=== PATIENT | male | born 1970 | race Caucasian/White ===

== ENCOUNTER 2017-07-01 16:25 | Emergency (ER) | payer OTHER ==
[~2017-07-01] VITALS: Ht 167.6 cm; Wt 93.4 kg
[2017-07-01 16:43] VITALS: BP 138/74
--- NOTE | 2017-07-01 16:52 | NUR ---
PT AMBULATES TO ER BED 12. REPORT GIVEN TO MONICA CONTRERAS.
--- NOTE | 2017-07-01 17:23 | NUR ---
PATIENT PRESENTS TO ED WITH C/O DIZZINESS WEAKNESS HEADACHES GENERAL MALAISE X 3 DAYS DENIES ETOH/DRUG USE, ADDS HYPERDIPSIA, HYPERPHAGIA, AND HYPERURIA CURRENTLY HYPERGLYCEMIC---FULL CLEAR SPEECH, NO FACIAL ASYMMETRY, AMBULATORY WITH STEADY GAIT, EQUAL METAL DRESSER/PUSHES/PULLS BUE DENIES V/D; SKIN IS PINK/WARM/DRY; AAOX4 WITH EVEN AND STEADY GAIT; LUNGS CLEAR BL; HR EVEN AND REGULAR; PT DENIES ANY FEVER, CP, SOB, OR COUGH AT THIS TIME; PATIENT STATES PAIN OF 7/10 AT THIS TIME; VSS; PATIENT POSITIONED FOR COMFORT; HOB ELEVATED; BEDRAILS UP X2; BED DOWN. ER MD MADE AWARE OF PT STATUS.
[2017-07-01] MEDS ORDERED: PROMETHAZINE 25 MG/ML VIAL IM ONE (17:25)
[2017-07-01] MEDS ORDERED: ONDANSETRON 4 MG/2 ML VIAL IVP ONE (17:25)
[2017-07-01] MEDS ORDERED: MECLIZINE 25 MG TAB PO ONE (17:25)
--- NOTE | 2017-07-01 17:49 | NUR ---
BLOOD COLLECTED AT IV START
--- NOTE | 2017-07-01 17:51 | NUR ---
PT HOLDING CONVERSATION WITH AT BEDSIDE---SMILING LAUGHING AT TIMES.
[2017-07-01 17:53] LABS: BASOPHILS % (AUTO) 0.2 % (0.0-2.0); EOSINOPHILS # (AUTO) 0.1 K/uL (0-0.4); EOSINOPHILS % (AUTO) 0.7 % (0.0-4.0); HEMATOCRIT 45.2 % (36-52); HEMOGLOBIN 15.5 g/dL (12.0-18.0); LYMPHOCYTES # (AUTO) 1.5 K/uL (2.0-11.5); LYMPHOCYTES % (AUTO) 17.3 % (20.5-51.1); MEAN CORPUSCULAR HEMOGLOBIN 33 pg (27-31); MEAN CORPUSCULAR HGB CONC 34 g/dL (33-37); MEAN CORPUSCULAR VOLUME 95.7 fL (80-94); MONOCYTES # (AUTO) 0.5 K/uL (0.8-1.0); MONOCYTES % (AUTO) 6.2 % (1.7-9.3); NEUTROPHILS # (AUTO) 6.5 K/uL (1.8-7.7); NEUTROPHILS % (AUTO) 75.6 % (42.2-75.2); PLATELET COUNT (AUTO) 243 K/uL (140-450); RED BLOOD CELL COUNT(AUTO) 4.72 MIL/uL (4.20-6.10); RED CELL DISTRIBUTION WIDTH 12.6 % (11.6-13.7); WHITE BLOOD COUNT (AUTO) 8.6 K/uL (4.8-10.8)
--- NOTE | 2017-07-01 17:55 | NUR ---
TO CT VIA WC
[2017-07-01 17:56] LABS: APPEARANCE,URINE CLEAR (CLEAR); BILIRUBIN,URINE NEGATIVE (NEGATIVE); BLOOD, URINE NEGATIVE (NEGATIVE); COLOR,URINE YELLOW (YELLOW); LEUKOCYTE ESTERASE ,URINE NEGATIVE (NEGATIVE); NITRITE, URINE NEGATIVE (NEGATIVE); UGLUCOSE 3+ (NEGATIVE)
[2017-07-01 18:04] LABS: RBC,URINE 0-5 (RARE) /HPF (0-5); WBC,URINE 0-5 (RARE) /HPF (0-5)
--- NOTE | 2017-07-01 18:06 | NUR ---
RETURNED FROM CT VIA WC
[2017-07-01 18:08] LABS: ANION GAP 18.8 (8-16); CARBON DIOXIDE 23.3 mmol/L (21-32); CREATININE 0.9 mg/dL (0.7-1.3); POTASSIUM 4.1 mmol/L (3.5-5.1); TOTAL BILIRUBIN 0.7 mg/dL (0.0-1.0)
--- NOTE | 2017-07-01 18:08 | NUR ---
Family member sent home to retrieve patient's medications for medication reconciliation.
[2017-07-01 18:27] LABS: PROTHROMBIN TIME 10.4 secs (10.8-13.4)
[2017-07-01] MEDS ORDERED: LISI10TA11 PO (18:58)
[2017-07-01] MEDS ORDERED: METF500T PO (18:58)
[2017-07-01] MEDS ORDERED: INSULIN REGULAR, HUMAN 100 UNIT/ML VIAL SUBQ ONE (19:00)
--- NOTE | 2017-07-01 19:00 | NUR ---
RECEIVED REPORT FROM ELANA ANDERSON. TRANSFER OF CARE AT THIS TIME.
--- NOTE | 2017-07-01 19:45 | NUR ---
PATIENT HAD ACCUCHECK OF 362. PER NATALIE KO TO DC.
[2017-07-01 19:48] VITALS: BP 125/81
--- NOTE | 2017-07-01 19:48 | NUR ---
Patient discharged with v/s stable. Written and verbal after care instructions given and explained. Patient alert, oriented and verbalized understanding of instructions. Ambulatory with steady gait. All questions addressed prior to discharge. ID band removed. Patient advised to follow up with PMD. Rx of METFORMIN HYDROCHLORIDE 500MG AND ANTIVERT 25MG given. Patient educated on indication of medication including possible reaction and side effects. Opportunity to ask questions provided and answered.
== END 2017-07-01 19:48 | disposition home or self-care (01) ==
LOC: MED 16:25
DX: E11.65 Type 2 diabetes mellitus with hyperglycemia (principal); K21.9 Gastro-esophageal reflux disease without esophagitis; I10 Essential (primary) hypertension; R94.31 Abnormal electrocardiogram [ECG] [EKG]
CPT/HCPCS: 36415; 70450; 71045; 80053; 81001; 82948; 83036; 84484; 85025; 85610; 85730; 93005; 96372; 96374; 99285; J1815; J2405; J2550; J8597; Q0092

== ENCOUNTER 2019-09-21 18:15 | Emergency (ER) | payer OTHER ==
[~2019-09-21] VITALS: Ht 167.6 cm; Wt 83.0 kg
[~2019-09-21 18:15] MED LIST: LISI10TA11 PO; METF500T PO
[2019-09-21 18:27] VITALS: BP 129/75
[2019-09-21 18:39] VITALS: BP 129/75
--- NOTE | 2019-09-21 18:39 | NUR ---
48 Y/O M C/C HIGH BLOOD SUGAR AND BLURRY VISION X 1 DAY. PER PT HAS BEEN COMPLIANT WITH DM MEDICATION. PT DENIES POLYPHAGIA,POLYURIA,POLYDIPSIA. NVD. NKA. HX DM,HTN,HDL. RX METFORMIN,ATORVASTATIN,LISINOPRIL. SIDE RAIL X1.
[2019-09-21] MEDS ORDERED: NACL 0.9% 1,000 ML IV ONE (18:40)
[2019-09-21 18:59] LABS: BASOPHILS % (AUTO) 0.4 % (0.0-2.0); EOSINOPHILS # (AUTO) 0.1 K/uL (0-0.4); EOSINOPHILS % (AUTO) 1.4 % (0.0-4.0); HEMATOCRIT 43.6 % (36-52); HEMOGLOBIN 14.8 g/dL (12.0-18.0); LYMPHOCYTES % (AUTO) 30.1 % (20.5-51.1); MEAN CORPUSCULAR HEMOGLOBIN 33 pg (27-31); MEAN CORPUSCULAR HGB CONC 34 g/dL (33-37); MEAN CORPUSCULAR VOLUME 97.1 fL (80-94); MONOCYTES # (AUTO) 0.6 K/uL (0.8-1.0); MONOCYTES % (AUTO) 9.6 % (1.7-9.3); NEUTROPHILS # (AUTO) 3.8 K/uL (1.8-7.7); NEUTROPHILS % (AUTO) 58.5 % (42.2-75.2); PLATELET COUNT (AUTO) 209 K/uL (140-450); RED BLOOD CELL COUNT(AUTO) 4.49 MIL/uL (4.20-6.10); RED CELL DISTRIBUTION WIDTH 12.3 % (11.6-13.7); WHITE BLOOD COUNT (AUTO) 6.6 K/uL (4.8-10.8)
[2019-09-21 19:01] LABS: APPEARANCE,URINE CLEAR (CLEAR); BILIRUBIN,URINE NEGATIVE (NEGATIVE); BLOOD, URINE NEGATIVE (NEGATIVE); COLOR,URINE YELLOW (YELLOW); LEUKOCYTE ESTERASE ,URINE NEGATIVE (NEGATIVE); NITRITE, URINE NEGATIVE (NEGATIVE); UGLUCOSE 3+ (NEGATIVE)
[2019-09-21 19:11] LABS: ACETONE, SERUM NEGATIVE (NEGATIVE)
--- NOTE | 2019-09-21 19:11 | NUR ---
BIPIN ANDERSON GIVEN REPORT FOR CONTINUITY OF CARE
[2019-09-21 19:22] LABS: ANION GAP 11.9 (8-16); ASPARTATE AMINOTRANSFERASE 12 U/L (15-37); CHLORIDE 92 mmol/L (98-107); CREATININE 1.2 mg/dL (0.6-1.3); GFR ARICAN-AMERICAN 82 mL/min (>90); POTASSIUM 3.9 mmol/L (3.5-5.1); SODIUM SERUM 129 mmol/L (136-145); TOTAL BILIRUBIN 0.6 mg/dL (0.0-1.0); UREA NITROGEN, BLOOD 16 mg/dL (7-18)
[2019-09-21] MEDS ORDERED: INSULIN REGULAR, HUMAN 100 UNIT/ML VIAL IVP ONE ×2 (19:25→19:45)
[2019-09-21 19:26] LABS: GLUCOSE 511 mg/dL (74-106)
--- NOTE | 2019-09-21 19:36 | NUR ---
ACCUCHECK 402, ERMD MADE AWARE.
--- NOTE | 2019-09-21 19:44 | NUR ---
PT ADMINISTERED 10 UNITS OF HUMULIN R, CO-SIGNED BY MONICA INMAN Addendum: 09/21/19 at 1949 by MEDWQ CO-SIGNED BY MONICA ZHANG
--- NOTE | 2019-09-21 20:21 | NUR ---
ACCUCHECK RECHECKED 242, ERMD MADE AWARE
== END 2019-09-21 20:37 | disposition home or self-care (01) ==
LOC: MED 18:15
DX: E11.65 Type 2 diabetes mellitus with hyperglycemia (principal); K21.9 Gastro-esophageal reflux disease without esophagitis; I10 Essential (primary) hypertension; Z79.84 Long term (current) use of oral hypoglycemic drugs; Z79.899 Other long term (current) drug therapy
CPT/HCPCS: 36415; 80053; 81003; 82009; 82948; 85025; 96361; 96374; 99283; J1815; J7030

== ENCOUNTER 2020-01-28 08:22 | Emergency (ER) | payer OTHER, SELFPAY ==
[~2020-01-28] VITALS: Ht 172.7 cm; Wt 79.4 kg
[2020-01-28 08:33] VITALS: BP 95/60
--- NOTE | 2020-01-28 08:35 | NUR ---
CHAZ AMIN IN TENT ASSESSING PT
--- NOTE | 2020-01-28 08:45 | NUR ---
NOVEL SWAB COLLECTED AND SENT TO LAB
[2020-01-28 08:49] VITALS: BP 95/60
--- NOTE | 2020-01-28 08:49 | NUR ---
Patient discharged with v/s stable. Written and verbal after care instructions given and explained. Patient verbalized understanding. Ambulatory with steady gait. All questions addressed prior to discharge. Advised to follow up with PMD.
== END 2020-01-28 08:49 | disposition home or self-care (01) ==
LOC: MED 08:22
DX: U07.1 COVID-19 (principal); J06.9 Acute upper respiratory infection, unspecified; R05 Cough; M79.10 Myalgia, unspecified site
CPT/HCPCS: 99283; U0003

== ENCOUNTER 2020-09-17 21:35 | Emergency (ER) | payer OTHER, SELFPAY ==
[~2020-09-17] VITALS: Ht 167.6 cm; Wt 77.1 kg
[~2020-09-17 21:35] MED LIST changes: +LISI-486 PO; -LISI10TA11 PO
[2020-09-17 21:50] VITALS: BP 131/76
--- NOTE | 2020-09-17 21:53 | NUR ---
TO LOBBY A/W BED AMBULATORY
[2020-09-17 22:44] LABS: BASOPHILS % (AUTO) 0.7 % (0.0-2.0); EOSINOPHILS # (AUTO) 0.2 K/uL (0-0.4); EOSINOPHILS % (AUTO) 2.9 % (0.0-4.0); HEMATOCRIT 44.5 % (36-52); LYMPHOCYTES # (AUTO) 2.2 K/uL (2.0-11.5); LYMPHOCYTES % (AUTO) 37.7 % (20.5-51.1); MEAN CORPUSCULAR HEMOGLOBIN 33 pg (27-31); MEAN CORPUSCULAR HGB CONC 34 g/dL (33-37); MEAN CORPUSCULAR VOLUME 97.4 fL (80-94); MONOCYTES # (AUTO) 0.5 K/uL (0.8-1.0); MONOCYTES % (AUTO) 8.9 % (1.7-9.3); NEUTROPHILS # (AUTO) 2.9 K/uL (1.8-7.7); NEUTROPHILS % (AUTO) 49.8 % (42.2-75.2); PLATELET COUNT (AUTO) 243 K/uL (140-450); RED BLOOD CELL COUNT(AUTO) 4.56 MIL/uL (4.20-6.10); RED CELL DISTRIBUTION WIDTH 13.2 % (11.6-13.7); WHITE BLOOD COUNT (AUTO) 5.8 K/uL (4.8-10.8)
[2020-09-17 23:42] LABS: ALBUMIN 3.6 g/dL (3.4-5.0); ANION GAP 15.3 (8-16); CARBON DIOXIDE 24.9 mmol/L (21-32); CREATININE 1.2 mg/dL (0.6-1.3); POTASSIUM 4.2 mmol/L (3.5-5.1); TOTAL BILIRUBIN 0.4 mg/dL (0.0-1.0)
[2020-09-17 23:49] LABS: APPEARANCE,URINE CLEAR (CLEAR); BILIRUBIN,URINE NEGATIVE (NEGATIVE); BLOOD, URINE NEGATIVE (NEGATIVE); COLOR,URINE YELLOW (YELLOW); LEUKOCYTE ESTERASE ,URINE NEGATIVE (NEGATIVE); NITRITE, URINE NEGATIVE (NEGATIVE); UGLUCOSE 3+ (NEGATIVE)
[2020-09-18] MEDS ORDERED: NACL 0.9% 1,000 ML IV ONE (00:05)
[2020-09-18] MEDS ORDERED: INSULIN REGULAR, HUMAN 100 UNIT/ML VIAL IVP ONE (00:05)
--- NOTE | 2020-09-18 00:11 | NUR ---
TO ER BED 9
--- NOTE | 2020-09-18 00:24 | NUR ---
BS 392 pre-administration of insulin.
[2020-09-18] MEDS ORDERED: OMEP40EC23 PO (00:51)
[2020-09-18] MEDS ORDERED: IBUP-2213 PO (00:51)
[2020-09-18 01:19] VITALS: BP 110/64
--- NOTE | 2020-09-18 01:23 | NUR ---
d/c with VSS. d/c education given. opportunity to ask questions given and answered. rx of prilosec and motrin given. IV site removed, bleeding controlled with sterile gauze and reinforced with tape.
== END 2020-09-18 01:23 | disposition home or self-care (01) ==
LOC: MED 21:35
DX: R10.32 Left lower quadrant pain (principal); E11.65 Type 2 diabetes mellitus with hyperglycemia; I10 Essential (primary) hypertension; K21.9 Gastro-esophageal reflux disease without esophagitis
CPT/HCPCS: 36415; 74176; 80053; 81003; 83690; 85025; 96361; 96374; 99284; J1815; J7030